=== PATIENT | female | born 1940 | race Caucasian/White ===

== ENCOUNTER 2020-04-17 09:30 | Outpatient (CLI) | payer MEDICARE, SELFPAY ==
--- NOTE | ~2020-04-17 | NM_ITS ---
EXAMINATION: NM tarsha stress w perfusion DATE: 04/17/2020 14:03 INDICATION: Abnormal electrocardiogram. Fatigue. TECHNIQUE: Rest images were obtained following intravenous administration of 8.5 mCi Tc99m tetrofosmi n (Myoview). The patient was infused intravenously with Lexiscan (regadenoson). Then, 22.1 mCi Tc99m tetrofosmin (Myoview) was administered intravenously, and stress images were obtained. Data was recon structed into short axis and horizontal and vertical long axis SPECT images. Gated SPECT images were also obtained. COMPARISON: None. FINDINGS: There is no definite reversible or fixed perfusion abnormality to suggest ischemia or infar ction. There is no segmental wall motion abnormality. Left ventricular ejection fraction measures 6 9%. IMPRESSION: 1. No definite ischemia or infarct. 2. Normal left ventricular ejection fraction measuring 69%. Reviewed, dictated and finalized at location A.
--- NOTE | 2020-04-17 08:19 | EST_ITS ---
Patient Info Name: Raquel Rausch Age: 80 years : 1940 Gender: Female Ht: 64 in Wt: 160 lbs BSA: 1.83 m2 Exam Date: 04/17/2020 12:18 PM Exam Location: [facility] Stress Patient Status: Outpatient Admit Date: 04/17/2020 Staff Ordering Physician: Raymundo Soriano MD Attending Provider: Raymundo Soriano MD Exercise Technologist: Johnna Molina RDCS Exercise Physician: Morris Velez DO Exam Type: CA stress tarsha w NM Study Info Indications R53.83 - Other fatigue A regadenoson stress test was performed. Summary 1. 1. Inconclusive lexiscan stress test for ischemic ST changes by ECG criteria due to baseline LBBB. 2. 2. Baseline hypertension. 3. 3. Nuclear scan to follow and will be reported separately. Please correlate with it. 4. 4. Patient informed of the above results. Protocol: Lexiscan Stress ECG Details Stage: REST Duration (min): 1 min : 3 sec HR (bpm): 78 SBP (mmHg): 150 DBP (mmHg): 101 Stage: REST Duration (min): 2 min : 56 sec HR (bpm): 74 SBP (mmHg): 150 DBP (mmHg): 101 Stage: STAGE 1 Duration (min): 1 min : 0 sec HR (bpm): 83 SBP (mmHg): 120 DBP (mmHg): 82 Stage: RECOVERY Duration (min): 1 min : 0 sec HR (bpm): 96 SBP (mmHg): 124 DBP (mmHg): 73 Stage: RECOVERY Duration (min): 2 min : 0 sec HR (bpm): 93 SBP (mmHg): 124 DBP (mmHg): 73 Stage: RECOVERY Duration (min): 3 min : 0 sec HR (bpm): 97 SBP (mmHg): 126 DBP (mmHg): 54 Stage: RECOVERY Duration (min): 4 min : 0 sec HR (bpm): 89 SBP (mmHg): 126 DBP (mmHg): 54 Stage: RECOVERY Duration (min): 5 min : 0 sec HR (bpm): 90 SBP (mmHg): 127 DBP (mmHg): 57 Stage: RECOVERY Duration (min): 6 min : 0 sec HR (bpm): 93 SBP (mmHg): 127 DBP (mmHg): 57 Stage: RECOVERY Duration (min): 7 min : 0 sec HR (bpm): 91 SBP (mmHg): 133 DBP (mmHg): 60 Stage: RECOVERY Duration (min): 8 min : 0 sec HR (bpm): 87 SBP (mmHg): 133 DBP (mmHg): 60 Stage: RECOVERY Duration (min): 9 min : 0 sec HR (bpm): 85 SBP (mmHg): 150 DBP (mmHg): 62 Stage: RECOVERY Duration (min): 10 min : 0 sec HR (bpm): 89 SBP (mmHg): 150 DBP (mmHg): 62 Stage: RECOVERY Duration (min): 10 min : 51 sec HR (bpm): 85 SBP (mmHg): 150 DBP (mmHg): 63 Rest HR: 74 bpm Peak HR: 99 bpm Rest Sys BP: 150 mmHg Peak Sys BP: 150 mmHg Max Pred HR: 138 bpm % Max Pred HR: 72 % Target HR: 117 bpm Max RPP: 14,850 bpm*mmHg Termination Reason: Completed protocol Cardiac Symptoms: Shortness of breath, Stomach pain Total Time: 1 min : 0 sec Rest Bruce BP: 101 mmHg Peak Bruce BP: 63 mmHg Total Dose: 0.4 mg Resting ECG Sinus rhythm, LBBB. Stress ECG No ST changes. Arrhythmias None. Report Signatures Electronically signed by Morris Velez
--- NOTE | 2020-04-25 10:38 | WPDPFTINT ---
PFT Interpretation PFT Interpretation: This PFT met all criteria for ATS standards and reproducibility FEV/FVC pre bronchodilator 59% FEV1 82% or 1.40 liters FVC 93% or 2.35 liters No bronchodilator challenge was given TLC 96% or 4.54 liters RV 107% RV/TLC 48% DLCO 65% when adjusted for alveolar volume but not adjusted for hemoglobin Flow volume loops showed some expiratory coving Impression: Unfortunately this PFT is limited as there was no bronchodilator challenge given. Nonethless there may be mild airflow obstruction with mildly reduced diffusion capacity. The patients age may also explain findings. Clinical correlation is advised.
== END 2020-04-17 09:31 | disposition home or self-care (01) ==
LOC: ANHCARD 09:39
PROVIDERS: PCP Family Medicine; Visit Provider Family Medicine
DX: R53.83 Other fatigue (principal); R06.02 Shortness of breath
CPT/HCPCS: 78452; 93017; 94375; 94726; 94729; A9502; J2785

== ENCOUNTER 2020-04-19 07:47 | Emergency (ER) | payer MEDICARE, SELFPAY ==
--- NOTE | ~2020-04-19 | XR_ITS ---
EXAMINATION: XR humerus LT DATE: 04/19/2020 08:25 INDICATION: Left upper arm pain. Fall. TECHNIQUE: 2 views of left humerus were obtained. COMPARISON: None. FINDINGS: Bone alignment is normal. No fracture. There is mild osteoarthritis of glenohumeral joint a nd acromioclavicular joint. No elbow joint effusion. IMPRESSION: 1. Polyarticular osteoarthritis. Reviewed, dictated and finalized at location A.
--- NOTE | ~2020-04-19 | XR_ITS ---
EXAMINATION: XR hand LT min 3V DATE: 04/19/2020 08:25 INDICATION: Left hand injury and pain. TECHNIQUE: 3 views of left hand were obtained. COMPARISON: None. FINDINGS: There is hyperextension of first metacarpophalangeal joint. There is ulnar subluxation of t hird and fourth distal phalanges with respect to the middle phalanges. There is moderate osteoarthrit is of triscaphe joint and severe osteoarthritis of first carpometacarpal joint and lunate-hamate join t. There is osteoarthritis of most of the interphalangeal joints, severe at the second, third, and fo urth distal interphalangeal joints and moderate at the fifth distal interphalangeal joint and first i nterphalangeal joint. IMPRESSION: 1. Polyarticular osteoarthritis. Reviewed, dictated and finalized at location A.
--- NOTE | ~2020-04-19 | CT_ITS ---
EXAMINATION: CT brain wo con DATE: 04/19/2020 08:27 INDICATION: Head injury. Fall. TECHNIQUE: Computed tomography (CT) of the head was performed without intravenous contrast. The mA wa s adjusted according to patient size. Iterative reconstruction technique was employed. The dose-lengt h product was 605.33 mGy-cm. COMPARISON: Head CT 10/20/2007 FINDINGS: There are scattered areas of low attenuation in the cerebral white matter. There is no intr acranial hemorrhage, acute infarction, or abnormal intracranial mass lesion. The ventricles are bernie l in size. There are likely changes of ocular lens replacement surgeries. There is mild mucosal thick ening in the ethmoid sinuses. The mastoid air cells are normal. IMPRESSION: 1. Worsened extensive nonspecific cerebral white matter disease, which likely represents chronic smal l vessel ischemic disease. Reviewed, dictated and finalized at location A. IMPRESSION: 1. Worsened extensive nonspecific cerebral white matter disease, which likely r epresents chronic small vessel ischemic disease.
--- NOTE | ~2020-04-19 | XR_ITS ---
EXAMINATION: XR wrist LT min 3V DATE: 04/19/2020 08:25 INDICATION: Left wrist pain. TECHNIQUE: 4 views of left wrist were obtained. COMPARISON: None. FINDINGS: Bone alignment is normal. No fracture. There is moderate osteoarthritis of triscaphe joint and severe osteoarthritis of first carpometacarpal joint. There is severe osteoarthritis of lunate-ivey mate joint. There is a 9 mm nonaggressive lytic lesion in hamate that may be a subchondral cyst or en chondroma. IMPRESSION: 1. Polyarticular osteoarthritis. Reviewed, dictated and finalized at location A.
[2020-04-19 07:58] VITALS: BP 159/70; PULSE 91; RESP 17; TEMP 37.1; O2SAT 99
--- NOTE | 2020-04-19 07:58 | ED.GENADULT ---
HPI - General Adult General Chief complaint: Extremity Injury, Upper Stated complaint: fall Time Seen by Provider: 04/19/20 07:56 Source: patient and family Mode of arrival: ambulatory Limitations: no limitations History of Present Illness HPI narrative: 80 years old white female presents to the ED with pain at the left upper extremity mainly left shoulder. Patient was walking downhill yesterday, lost her balance and fell forward, hit the side of her head and try to break her fall by her left upper extremity. Patient denies any other injuries. Patient denies any fever, chills, nausea, vomiting, chest pain, back pain, abdominal pain, headache, neck pain. Patient on baby aspirin once a day Related Data Home Medications Medication Instructions Recorded Confirmed [id number] tablet 1 tablet PO DAILY 05/12/19 cholecalciferol (vitamin D3) 50 100 mcg PO DAILY cap 01/11/20 mcg (2,000 unit) capsule Allergies Allergy/AdvReac Type Severity Reaction Status Date / Time atenolol Allergy Unknown leg Verified 04/19/20 08:05 swelling, numb, pain atorvastatin Allergy Unknown reported Verified 04/19/20 08:05 muscle aches colesevelam Allergy Unknown Hives Verified 04/19/20 08:05 ezetimibe Allergy Unknown myalgias Verified 04/19/20 08:05 lisinopril Allergy Unknown Asthma Verified 04/19/20 08:05 niacin Allergy Unknown rash/hives Verified 04/19/20 08:05 simvastatin [Vytorin] Allergy Unknown myalgias Verified 04/19/20 08:05 valsartan Allergy Unknown muscle Verified 04/19/20 08:05 cramps Review of Systems Review of Systems: Narrative: CONSTITUTIONAL: Denies fever, chills, or sweats. EYES: Denies visual changes, redness, or discharge. ENT: Denies rhinorrhea, congestion, sore throat, or otalgia. CARDIOVASCULAR: Denies chest pain, palpitations, or edema. RESPIRATORY: Denies cough or dyspnea. GASTROINTESTINAL: Denies abdominal pain, nausea, vomiting, or diarrhea. GENITOURINARY: Denies dysuria or hematuria. SKIN: Denies rash or itching. MUSCULOSKELETAL: Denies back pain, joint pain, or myalgia. NEUROLOGIC: Denies headache, numbness, or weakness. PSYCHIATRIC: Denies anxiety or depression. [facility] Family History Family History Mother Hypertension, Onset Age: 74 Family history of cardiovascular disease Family history of congestive heart failure, Onset Age: 74 Family history of elevated blood lipids Acute myocardial infarction Father Family history of cardiovascular disease Acute myocardial infarction, Onset Age: 78 Other Family history of arthritis Social History Social History Smoking status: Current some day smoker Alcohol intake: never Gender identity (if verbalized by the patient): Female Exam Narrative: Exam Narrative: General appearance: Well-developed, well-nourished Skin: Normal color Head: Normocephalic, slight bruises left temporal area Eyes: Clear conjunctiva ENT: Oropharynx normal, ears normal, nose normal Neck: Supple, nontender Chest and respiratory: Airway patent, no respiratory distress, no accessory muscle use Heart: Regular rate/rhythm Abdomen: Soft, nontender, no organomegaly, quiet bowel sounds Vascular: Normal peripheral pulses, normal capillary refill. Musculoskeletal: Limited range of motion of left upper extremity mainly at the shoulder area, no bruises, no deformity severe diffuse tenderness Neurologic: Alert and oriented ?3, PUBLIC INFORMATION SPECIALIST is normal as tested, no gross motor deficit Course Course Emergency Course: Stable Vital Signs Vital signs: Vital Signs Temperature
[2020-04-19] MEDS: IBUPROFEN 600 MG TABLET PO (08:37)
[2020-04-19] MEDS: HYDROcodone/acetaminophen (*CRX) 5-325 MG TABLET 1 TAB PO (08:37)
[2020-04-19 09:20] VITALS: BP 156/60; PULSE 79; RESP 15; O2SAT 99
== END 2020-04-19 09:45 | disposition home or self-care (01) ==
PROVIDERS: Emergency Provider Emergency Medicine; PCP Family Medicine
DX: S40.021A Contusion of right upper arm, initial encounter (principal); Z79.82 Long term (current) use of aspirin; F17.200 Nicotine dependence, unspecified, uncomplicated; M19.032 Primary osteoarthritis, left wrist; M18.9 Osteoarthritis of first carpometacarpal joint, unspecified; M19.042 Primary osteoarthritis, left hand; M19.012 Primary osteoarthritis, left shoulder; R90.82 White matter disease, unspecified
CPT/HCPCS: 70450; 73060; 73110; 73130; 99284; A9270

== ENCOUNTER 2020-05-08 07:55 | Outpatient (CLI) | payer MEDICARE, SELFPAY ==
--- NOTE | ~2020-05-08 | US_ITS ---
EXAMINATION: US art doppler w press LE BI DATE: 05/08/2020 08:56 INDICATION: Peripheral vascular disease. Claudication. TECHNIQUE: Segmental pressures and plethysmographic and Doppler waveforms of the brachial and lower e xtremity arteries were obtained. COMPARISON: None. FINDINGS: Right and left brachial artery pressures of 140 mm Hg and 142 mm Hg, respectively, are concordant (no rmal difference <= 30 mmHg). The right and left high-thigh pressure indices are 1.01 and 1.19, respec tively (normal > 1.2). The right ankle-brachial index (CHRISTINE) is 0.54 (normal >= 0.9-1). The right great toe-brachial index (T BI) is 0.69 (normal >= 0.6-0.8). The right lower extremity segmental pressure gradients are increased between the right above and [id number]-cwm-ahuf popliteal artery as well as between the jytjl-huv-cslg ri ght popliteal artery and the contralateral left jhddf-fzy-gdxq popliteal artery (normal gradients <= 20-30 mmHg between adjacent levels on the same leg or the same levels on the two legs). Similar there is increased pressure gradient between the arteries at the right ankle and the arteries at the contr alateral left ankle. Arterial waveforms are biphasic with brisk systolic upstrokes throughout. The left CHRISTINE is 0.88. The left TBI is 0.64. The left lower extremity segmental pressure gradients are normal. Arterial waveforms are biphasic with brisk systolic upstrokes throughout. IMPRESSION: 1. Bilateral arterial occlusive disease with mildly decreased left and moderately decreased right CHRISTINE s. Reviewed, dictated and finalized at location A. ALS LIBRARIAN IMPRESSION: 1. Bilateral arterial occlusive disease with mildly decreased left and moderate ly decreased right ABIs.
== END 2020-05-08 07:56 | disposition home or self-care (01) ==
PROVIDERS: PCP Family Medicine; Visit Provider Family Medicine
DX: I73.9 Peripheral vascular disease, unspecified (principal)
CPT/HCPCS: 93923